=== PATIENT | male | born 1940 | race Caucasian/White ===

== ENCOUNTER 2017-03-28 14:04 | Outpatient (CLI) | payer MEDICARE, OTHER ==
[2017-03-28 14:20] VITALS: BP 117/60
[2017-03-28] MEDS ORDERED: ASPIRIN-LOW81 MG ORAL (14:57)
[2017-03-28] MEDS ORDERED: AMLODIPINE BESY10 MG ORAL (14:57)
[2017-03-28] MEDS ORDERED: LEVEMIR FL100 UNIT/1 SUBQ (14:57)
[2017-03-28] MEDS ORDERED: GABAPENTIN100 MG ORAL (14:58)
[2017-03-28] MEDS ORDERED: BENAZEPRIL HCL40 MG ORAL (14:58)
[2017-03-28] MEDS ORDERED: TAMSULOSIN HCL0.4 MG ORAL (14:58)
[2017-03-28] MEDS ORDERED: DIOVAN320 MG ORAL (14:58)
[2017-03-28] MEDS ORDERED: LEXAPRO5 MG ORAL (14:58)
[2017-03-28] MEDS ORDERED: CARVEDILOL25 MG ORAL (14:58)
[2017-03-28] MEDS ORDERED: LIPITOR80 MG ORAL (14:58)
[2017-03-28] MEDS ORDERED: PLAVIX75 MG ORAL (14:58)
--- NOTE | 2017-03-28 15:07 | GI Initial Consult Note ---
Padilla,Renetta David N.P. 03/28/17 1506: History of Present Illness General Date patient seen: Mar 28, 2017 Time patient seen: 14:49 Referring physician: LEXIE Reason for Consultation: RECTAL BLEED Present Illness HPI 76 year old male patient with history of prostate cancer s/p chemotherapy presents to the clinic with complaint of rectal bleed, noted as bright red, x2 q2-3 weeks. Patient states he has never had a colonoscopy performed before. Denies any unintentional weight loss or changes in dietary habits. States he has been gaining weight. No signs of abuse or neglect. Patient is not fall risk. Home Meds Reported Medications Valsartan (DIOVAN) 320 Mg Tablet, 320 MG ORAL DAILY, TAB 03/28/17 Tamsulosin Hcl (TAMSULOSIN HCL*) 0.4 Mg Cap.er.24h, 0.4 MG ORAL BEDTIME, CAP 03/28/17 Gabapentin* (GABAPENTIN*) 100 Mg Capsule, 100 MG ORAL THREE TIMES A DAY, CAP 03/28/17 Escitalopram Oxalate (LEXAPRO) 5 Mg Tablet, 20 MG ORAL DAILY, TAB 03/28/17 Clopidogrel Bisulfate* (PLAVIX*) 75 Mg Tablet, 75 MG ORAL DAILY, TAB 03/28/17 Carvedilol* (CARVEDILOL*) 25 Mg Tablet, 25 MG ORAL EVERY 12 HOURS, TAB 03/28/17 Benazepril Hcl* (BENAZEPRIL HCL*) 40 Mg Tablet, ORAL DAILY, TAB 03/28/17 Atorvastatin (Lipitor) 80 Mg Tablet, 40 MG ORAL BEDTIME, #30 TAB 0 Refills 03/28/17 Aspirin (Aspirin EC) 81 Mg Tablet.dr, 81 MG ORAL DAILY, TAB 03/28/17 Amlodipine Besylate* (AMLODIPINE BESYLATE*) 10 Mg Tablet, 10 MG ORAL DAILY, TAB 03/28/17 Insulin Detemir (LEVEMIR FLEXPEN) 100 Unit/1 Ml Insuln.pen, 0 SUBQ, #300 UNITS 0 Refills 03/28/17 Med list reviewed/reconciled: Yes Allergies: Coded Allergies: No Known Allergies (Unverified , 03/28/17) Patient History History Provided By: Patient, Medical Record PMH Narrative Prostate CA s/p chemo, currently in remission or eradicated DM stroke inguinal hernia Past Surgical History: Chemo stent - stomach and brain Family History Narrative unable to recall Social History: Denies: smoking, alcohol use, drug use, other Social History Narrative daily coffee Review of Systems All Other Systems: negative except mentioned in HPI Physical Exam T 98.5 BP 117/60 P 52 96 RA WT 210.5 lbs Sp02 EP Interpretation: reviewed, normal General Appearance: well appearing, no apparent distress, alert, other - overweight Head: normocephalic EENT: PERRL/EOMI, normal ENT inspection Neck: supple Respiratory: normal breath sounds, no respiratory distress Cardiovascular: normal rate Gastrointestinal: normal inspection, non tender, soft, normal bowel sounds, non -distended Rectal: deferred Genitourinary: deferred Musculoskeletal: normal inspection, back normal Neurologic: normal inspection, alert, oriented x3, responsive Psychiatric: normal inspection, judgement/insight normal, memory normal Skin: normal inspection, normal color, no rash, warm/dry, palpation normal, well hydrated Lymphatic: normal inspection, no adenopathy GI: Plan Problems: (1) Diabetes mellitus (2) History of stroke (3) Rectal bleed (4) Prostate cancer (5) Inguinal hernia Plan Colonoscopy scheduled for 04/04/17. - CLD & (Nulytely/Suprep/Movi-Prep) prep instructions given and acknowledged by patient. - NPO @ [place] day prior procedure explained. Patient is on plavix, must be dc'd min 48-72 hours prior procedure. Seen with Dr. Servin. Thank you for this patient referral. FLORI SERVIN 03/30/17 1012: History of Present Illness Present Illness Home Meds Reported Medications Valsartan (DIOVAN) 320 Mg Tablet, 320 MG ORAL DAILY, TAB 03/28/17 Tamsulosin Hcl (TAMSULOSIN HCL*) 0.4 Mg Cap.er.24h, 0.4 MG ORAL BEDTIME, CAP 03/28/17 Gabapentin* (GABAPENTIN*) 100 Mg Capsule, 100 MG ORAL THREE TIMES A DAY, CAP 03/28/17 Escitalopram Oxalate (LEXAPRO) 5 Mg Tablet, 20 MG ORAL DAILY, TAB 03/28/17 Clopidogrel Bisulfate* (PLAVIX*) 75 Mg Tablet, 75 MG ORAL DAILY, TAB 03/28/17 Carvedilol* (CARVEDILOL*) 25 Mg Tablet, 25 MG ORAL EVERY 12 HOURS, TAB 03/28/17 Benazepril Hcl* (BENAZEPRIL HCL*) 40 Mg Tablet, ORAL DAILY, TAB 03/28/17 Atorvastatin (Lipitor) 80 Mg Tablet, 40 MG ORAL BEDTIME, #30 TAB 0 Refills 03/28/17 Aspirin (Aspirin EC) 81 Mg Tablet.dr, 81 MG ORAL DAILY, TAB 03/28/17 Amlodipine Besylate* (AMLODIPINE BESYLATE*) 10 Mg Tablet, 10 MG ORAL DAILY, TAB 03/28/17 Insulin Detemir (LEVEMIR FLEXPEN) 100 Unit/1 Ml Insuln.pen, 0 SUBQ, #300 UNITS 0 Refills 03/28/17 Allergies: Coded Allergies: No Known Allergies (Unverified , 03/28/17) GI: Plan Plan The patient was seen and examined at bedside and all new and available data was reviewed in the patients chart. I agree with the above findings, impression and plan. (Patient seen earlier today. Signature stamp does not reflect patient encounter time.). - [facility] David N.PMellissa Mar 28, 2017 15:06 FLORI SERVIN Mar 30, 2017 10:12
== END 2017-03-28 14:35 | disposition home or self-care (01) ==
LOC: PAN 14:04
DX: K62.5 Hemorrhage of anus and rectum (principal); E11.9 Type 2 diabetes mellitus without complications; Z86.73 Personal history of transient ischemic attack (TIA), and cerebral infarction without residual deficits; C61 Malignant neoplasm of prostate; K40.90 Unilateral inguinal hernia, without obstruction or gangrene, not specified as recurrent; Z79.82 Long term (current) use of aspirin; E66.3 Overweight
CPT/HCPCS: 99201

== ENCOUNTER 2017-04-04 10:01 | Day surgery (SDC) | payer MEDICARE, MEDICAID ==
[2017-04-04] VITALS (7 sets, daily range): BP systolic 142–170; BP diastolic 69–88
[~2017-04-04] VITALS: Ht 170.2 cm; Wt 88.5 kg
--- NOTE | 2017-04-04 07:54 | Anethesia Preoperative Eval ---
Anesthesia Pre-op PMH/ROS General Date of Evaluation: Apr 04, 2017 Time of Evaluation: 07:52 Anesthesiologist: marta ASA Score: ASA 3 Mallampati Score Class I : Soft palate, uvula, fauces, pillars visible Class II: Soft palate, uvula, fauces visible Class III: Soft palate, base of uvula visible Class IV: Only hard plate visible Mallampati Classification: Class II Surgeon: tim Diagnosis: rectal bleed Surgical Procedure: colonoscopy Anesthesia History: none Family History: no anesthesia problems Allergies: Coded Allergies: No Known Allergies (Unverified , 04/04/17) Medications: see eMAR Past Medical History Cardiovascular: Reports: HTN Gastrointestinal/Genitourinary: Reports: other - prostate cancer Neurologic/Psychiatric: Reports: CVA, depression/anxiety Endocrine: Reports: DM Anesthesia Pre-op Phys. Exam Physician Exam Last Vital Signs Date Time Temp Pulse Resp B/P (MAP) Pulse Ox O2 Delivery O2 Flow Rate FiO2 04/04/17 10:27 97.8 76 17 153/72 96 Room Air Constitutional: NAD Neurologic: CN 2-12 intact Cardiovascular: RRR Respiratory: CTA Gastrointestinal: S/NT/ND Airway Exam Mallampati Score: Class II MO: full Neck: supple TMD: 2fb ROM: limited Anesthesia Pre-op A/P Labs Accucheck 230 Risk Assessment & Plan Assessment: asa3 Plan: mac Status Change Before Surgery: No Pre-Antibiotics Drug: JAZMYN Tomlinson Apr 04, 2017 07:54
[~2017-04-04 10:01] MED LIST: AMLODIPINE BESY10 MG ORAL; ASPIRIN-LOW81 MG ORAL; BENAZEPRIL HCL40 MG ORAL; CARVEDILOL25 MG ORAL; DIOVAN320 MG ORAL; GABAPENTIN100 MG ORAL; LEVEMIR FL100 UNIT/1 SUBQ; LEXAPRO5 MG ORAL; LIPITOR80 MG ORAL; PLAVIX75 MG ORAL; TAMSULOSIN HCL0.4 MG ORAL
--- NOTE | 2017-04-04 10:41 | Short Stay Surgery H&P ---
History of Present Illness History of Present Illness Chief Complaint see recent consult note HPI Thiago Aleman is a 76 year old male who was admitted on for Rectal Bleed Patient History Allergies: Coded Allergies: No Known Allergies (Unverified , 04/04/17) PAST MEDICAL HISTORY: Past Surgeries: Social History: Medication History Scheduled Amlodipine Besylate* (Amlodipine Besylate*), 10 MG ORAL DAILY, (Reported) Aspirin (Aspirin EC), 81 MG ORAL DAILY, (Reported) Atorvastatin (Lipitor), 40 MG ORAL BEDTIME, (Reported) Benazepril Hcl* (Benazepril Hcl*), ORAL DAILY, (Reported) Carvedilol* (Carvedilol*), 25 MG ORAL EVERY 12 HOURS, (Reported) Clopidogrel Bisulfate* (Plavix*), 75 MG ORAL DAILY, (Reported) Escitalopram Oxalate (Lexapro), 20 MG ORAL DAILY, (Reported) Gabapentin* (Gabapentin*), 100 MG ORAL THREE TIMES A DAY, (Reported) Tamsulosin Hcl (Tamsulosin Hcl*), 0.4 MG ORAL BEDTIME, (Reported) Valsartan (Diovan), 320 MG ORAL DAILY, (Reported) Miscellaneous Medications Insulin Detemir (Levemir Flexpen), 0 SUBQ, (Reported) Review of Systems Cardiovascular: Reports: no symptoms Respiratory: Reports: no symptoms Skeletal: Reports: no symptoms Gastrointestinal: Reports: no symptoms Neurologic: Reports: no symptoms Endocrine: Reports: no symptoms Hematologic: Reports: no symptoms Physical Exam Vital Signs Last Vital Signs Date Time Temp Pulse Resp B/P (MAP) Pulse Ox O2 Delivery O2 Flow Rate FiO2 04/04/17 10:27 97.8 76 17 153/72 96 Room Air Skin: normal HENT: normal Heart: normal Lungs: normal Abdomen: normal Extremities: normal Plan Plan of Care esophagogastroduodenoscopy and colonoscopy Final Diagnosis: Attestation Are the patient's medical conditions optimized for surgery? Attestation Response: yes FLORI SERVIN Apr 04, 2017 10:41
--- NOTE | 2017-04-04 10:42 | Pre-Procedure Note/Attestation ---
Pre-Procedure Note/Attestation Complete Prior to Procedure Planned Procedure: not applicable Procedure Narrative: esophagogastroduodenoscopy and colonoscopy Indications for Procedure Pre-Operative Diagnosis: GIB Attestation I attest that I discussed the nature of the procedure; its benefits; risks and complications; and alternatives (and the risks and benefits of such alternatives ), prior to the procedure, with the patient (or the patient's legal distribution sales representative). I attest that, if there was a reasonable possibility of needing a blood transfusion, the patient (or the patient's legal distribution sales representative) was given the [facility] standardized written summary, pursuant to the Vinny Steffi Blood Safety Act ([place] Health and Safety Code # 1645, as amended). I attest that I re-evaluated the patient just prior to the surgery and that there has been no change in the patient's H&P, except as documented below: FLORI SERVIN Apr 04, 2017 10:42
[2017-04-04] MEDS ORDERED: Propofol 200mg/20ml IV ONE (11:00)
[2017-04-04] MEDS ORDERED: Lidocaine 1% MPF 10mg/ml 5ml ONE (11:00)
--- NOTE | 2017-04-04 11:27 | Endoscopy Procedure Note ---
Endoscopy Procedure Note Indication for Procedure: rectal bleed Operative Findings/Diagnosis: 3 polyps Specimen: yes Pt Tolerated Procedure Well: Yes Anesthesiologist: jermaine Anesthesia: MAC Implant(s) used?: No 50 yrs or older w/o bx or poly: No 10yrs. F/U not recommended: Yes If not recommended, why?: Above average risk 10 yrs. F/U needed: Yes 18 years or older w/prev. colo: No FLORI SERVIN Apr 04, 2017 11:27
--- NOTE | 2017-04-04 12:18 | Immediate Post-Op Evaluation ---
Immediate Post-Op Evalulation Immediate Post-Op Evalulation Procedure: colonoscopy Date of Evaluation: Apr 04, 2017 Time of Evaluation: 11:49 IV Fluids: 250ml 0.9ns Blood Products: none Estimated Blood Loss: negligible Blood Pressure Systolic: 148 Blood Pressure Diastolic: 81 Pulse Rate: 65 Respiratory Rate: 18 O2 Sat by Pulse Oximetry: 99 Temperature (Fahrenheit): 98.7 Pain Score (1-10): 0 Nausea: No Vomiting: No Complications none Patient Status: awake, reacts, patent Hydration Status: adequate Drug: JAZMYN Tomlinson Apr 04, 2017 12:18
--- NOTE | 2017-04-04 12:19 | 48 Hour Post Anesthesia Eval ---
Post Anesthesia Evaluation Procedure: colonoscopy Date of Evaluation: Apr 04, 2017 Time of Evaluation: 11:55 Blood Pressure Systolic: 148 0: 88 Pulse Rate: 65 Respiratory Rate: 18 Temperature (Fahrenheit): 98.7 O2 Sat by Pulse Oximetry: 99 Airway: patent Nausea: No Vomiting: No Pain Intensity: 0 Hydration Status: adequate Cardiopulmonary Status: stable Mental Status/LOC: patient returned to baseline Post-Anesthesia Complications: none Follow-up care needed: N/A JAZMYN GIBBS Apr 04, 2017 12:19
[2017-04-04] MEDS ORDERED: fentaNYL 100 mcg/2 mL IV PRN (12:30)
[2017-04-04] MEDS ORDERED: DiphenhydrAMINE 50mg/ml Inj IVP PRN (12:30)
[2017-04-04] MEDS ORDERED: Atropine Inj 1mg/10ml Syr IV PRN (12:30)
[2017-04-04] MEDS ORDERED: Midazolam 2mg/2ml Inj IVP PRN (12:30)
--- NOTE | 2017-04-04 15:15 | Procedure Note ---
DATE OF PROCEDURE: 04/04/2017 SURGEON: Magdaleno Bonilla M.D. PROCEDURE: Colonoscopy with hemostasis biopsy polypectomy. ANESTHESIA: Per Dr. Thorne. INSTRUMENT: Olympus adult flexible colonoscope. INDICATION: Rectal bleeding, history of the radiation Protonix. REASON FOR PROCEDURE: The procedure, risks, benefits, and possible consequences, including hemorrhage, aspiration, perforation and infection, and alternative treatments, were explained to the patient/legal guardian by Dr. Magdaleno Bonilla and the patient/legal guardian understood and accepted these risks. PROCEDURE: After informed consent was obtained and the patient was adequately sedated, first rectal exam was performed, which was normal. Then, the scope was advanced from the rectum into the cecum documented by appendiceal orifice, ileocecal valve, and right upper quadrant palpation. Quality of prep was very good. The patient had one polyp in ascending colon, removed with the cold snare polypectomy technique. This polyp measured roughly about 5 mm. Another polyp in the transverse colon, which was removed with cold biopsy forceps technique. This was diminutive polyp. Next polyp was in the sigmoid, removed with the cold biopsy forceps technique. This polyp measured 4 mm. The patient had some significant diverticulosis in the left colon and some scattered diverticula in the right colon. The patient has evidence of radiation proctitis. We used APC to cauterize this area of the arteriovenous malformations in the rectum. Retroflexion of rectum showed evidence of internal hemorrhoids, medium, nonbleeding. SUMMARY FINDINGS: 1. Three colonic polyp removed, see above for details. 2. Diverticulosis. 3. Hemorrhoids. 4. 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 RECOMMENDATIONS: Follow biopsy and treat accordingly. I want to thank, Dr. Burch, for this kind referral. Magdaleno Bonilla M.D. DR: DEEDEE JOB#: [id number] CC: Jevon Burch M.D.; Fax#: [phone]
== END 2017-04-04 15:20 | disposition home or self-care (01) ==
LOC: GAS 10:01
DX: K63.5 Polyp of colon (principal); K57.30 Diverticulosis of large intestine without perforation or abscess without bleeding; K64.9 Unspecified hemorrhoids; K62.7 Radiation proctitis; Z79.82 Long term (current) use of aspirin; I10 Essential (primary) hypertension; Z85.46 Personal history of malignant neoplasm of prostate; F41.9 Anxiety disorder, unspecified; F32.9 Major depressive disorder, single episode, unspecified; E11.9 Type 2 diabetes mellitus without complications; Z86.73 Personal history of transient ischemic attack (TIA), and cerebral infarction without residual deficits
CPT/HCPCS: 45380; 45382; 82962; 93005; J2704; 94003; 94150

== ENCOUNTER 2018-07-03 06:56 | Day surgery (SDC) | payer MEDICARE, MEDICAID ==
[~2018-07-03] VITALS: Ht 167.6 cm; Wt 72.6 kg
[2018-07-03] VITALS (8 sets, daily range): BP systolic 90–144; BP diastolic 60–92
--- NOTE | 2018-07-03 08:19 | Anethesia Preoperative Eval ---
Anesthesia Pre-op PMH/ROS General Date of Evaluation: Jul 03, 2018 Time of Evaluation: 08:17 Anesthesiologist: Jen ASA Score: ASA 3 Mallampati Score Class I : Soft palate, uvula, fauces, pillars visible Class II: Soft palate, uvula, fauces visible Class III: Soft palate, base of uvula visible Class IV: Only hard plate visible Mallampati Classification: Class II Surgeon: Avery Diagnosis: Anemia abdominal pain Surgical Procedure: cOLONOSCOPY Anesthesia History: none Family History: no anesthesia problems Allergies: Coded Allergies: No Known Allergies (Unverified , 07/03/18) Medications: see eMAR Patient NPO?: Yes Past Medical History Cardiovascular: Reports: HTN; Denies: CAD, AR, valve dz, arrhythmia, other Pulmonary: Denies: asthma, COPD, AVELINA, other Gastrointestinal/Genitourinary: Reports: GERD; Denies: CRI, ESRD, other Neurologic/Psychiatric: Reports: depression/anxiety; Denies: dementia, CVA, TIA, other Endocrine: Reports: DM; Denies: hypothyroidism, steroids, other HEENT: Denies: cataract (L), cataract (R), glaucoma, JAMUL (L), JAMUL (R), other Hematology/Immune: Reports: anemia; Denies: DVT, bleeding disorder, other Musculoskeletal/Integumentary: Reports: DJD PMH Narrative: as above PSxH Narrative: See H&P Anesthesia Pre-op Phys. Exam Physician Exam Last Vital Signs Date Time Temp Pulse Resp B/P (MAP) Pulse Ox O2 Delivery O2 Flow Rate FiO2 07/03/18 08:05 Room Air 07/03/18 07:45 98.8 72 18 144/92 98 Constitutional: NAD Neurologic: CN 2-12 intact Cardiovascular: RRR, no M/R/G Respiratory: CTA Gastrointestinal: S/NT/ND Airway Exam Mallampati Score: Class II MO: limited Neck: stiff ROM: full Teeth: intact Dentures: no upper, no lower Anesthesia Pre-op A/P Risk Assessment & Plan Assessment: ASA 3 Plan: MAC Status Change Before Surgery: No Soy Li MD Jul 03, 2018 08:19
[2018-07-03] MEDS ORDERED: fentaNYL 100 mcg/2 mL IV ONE (08:30)
[2018-07-03] MEDS ORDERED: Propofol 200mg/20ml IV ONE (08:30)
[2018-07-03] MEDS ORDERED: LR 1000ml ONE (08:30)
[2018-07-03] MEDS ORDERED: Midazolam 2mg/2ml Inj ONE (08:30)
--- NOTE | 2018-07-03 08:37 | Pre-Procedure Note/Attestation ---
Pre-Procedure Note/Attestation Complete Prior to Procedure Planned Procedure: not applicable Procedure Narrative: colonoscopy Indications for Procedure Pre-Operative Diagnosis: anemia Attestation I attest that I discussed the nature of the procedure; its benefits; risks and complications; and alternatives (and the risks and benefits of such alternatives ), prior to the procedure, with the patient (or the patient's legal scheduling representative). I attest that, if there was a reasonable possibility of needing a blood transfusion, the patient (or the patient's legal scheduling representative) was given the [facility] standardized written summary, pursuant to the Vinny Steffi Blood Safety Act ([place] Health and Safety Code # 1645, as amended). I attest that I re-evaluated the patient just prior to the surgery and that there has been no change in the patient's H&P, except as documented below: Macrina Soliman MD Jul 03, 2018 08:36
--- NOTE | 2018-07-03 08:39 | Short Stay Surgery H&P ---
History of Present Illness History of Present Illness Chief Complaint CC anmia HPI Detailed H&P attached. Patient with anemia and weight loss PMH: ischemic CM GERD FH NC SH at SNF -->, non smoker ROS Neg PE NCAT supple CTA RRR Abd soft ND No edema Assessment Anemai Weight loss Rec Colonoscopy HPI Thiago Aleman is a 77 year old male who was admitted on for Anemia Patient History Allergies: Coded Allergies: No Known Allergies (Unverified , 07/03/18) Medication History Scheduled Amlodipine Besylate* (Amlodipine Besylate*), 10 MG ORAL DAILY, (Reported) Aspirin (Aspirin EC), 81 MG ORAL DAILY, (Reported) Atorvastatin (Lipitor), 40 MG ORAL BEDTIME, (Reported) Benazepril Hcl* (Benazepril Hcl*), ORAL DAILY, (Reported) Carvedilol* (Carvedilol*), 25 MG ORAL EVERY 12 HOURS, (Reported) Clopidogrel Bisulfate* (Plavix*), 75 MG ORAL DAILY, (Reported) Escitalopram Oxalate (Lexapro), 20 MG ORAL DAILY, (Reported) Gabapentin* (Gabapentin*), 100 MG ORAL THREE TIMES A DAY, (Reported) Tamsulosin Hcl (Tamsulosin Hcl*), 0.4 MG ORAL BEDTIME, (Reported) Valsartan (Diovan), 320 MG ORAL DAILY, (Reported) Miscellaneous Medications Insulin Detemir (Levemir Flexpen), 0 SUBQ, (Reported) Physical Exam Vital Signs Last Vital Signs Date Time Temp Pulse Resp B/P (MAP) Pulse Ox O2 Delivery O2 Flow Rate FiO2 07/03/18 08:05 Room Air 07/03/18 07:45 98.8 72 18 144/92 98 Plan Attestation Are the patient's medical conditions optimized for surgery? Macrina Soliman MD Jul 03, 2018 08:39
--- NOTE | 2018-07-03 09:22 | Immediate Post-Op Evaluation ---
Immediate Post-Op Evalulation Immediate Post-Op Evalulation Procedure: Colonoscopy Date of Evaluation: Jul 03, 2018 Time of Evaluation: 09:21 IV Fluids: 300 Blood Products: none Estimated Blood Loss: none Urinary Output: none Blood Pressure Systolic: 116 Blood Pressure Diastolic: 72 Pulse Rate: 64 Respiratory Rate: 20 O2 Sat by Pulse Oximetry: 98 Temperature (Fahrenheit): 97.6 Pain Score (1-10): 1 Nausea: No Vomiting: No Complications none Patient Status: reacts, patent, none Hydration Status: adequate Soy Li MD Jul 03, 2018 09:22
--- NOTE | 2018-07-03 10:03 | 48 Hour Post Anesthesia Eval ---
Post Anesthesia Evaluation Procedure: Colonoscopy Date of Evaluation: Jul 03, 2018 Time of Evaluation: 10:02 Blood Pressure Systolic: 128 0: 65 Pulse Rate: 68 Respiratory Rate: 20 Temperature (Fahrenheit): 97.6 O2 Sat by Pulse Oximetry: 98 Airway: patent Nausea: No Vomiting: No Pain Intensity: 1 Hydration Status: adequate Cardiopulmonary Status: stable Mental Status/LOC: patient returned to baseline Follow-up Care/Observations: n/a Post-Anesthesia Complications: none Follow-up care needed: ready to discharge Soy Li MD Jul 03, 2018 10:03
[2018-07-03] MEDS ORDERED: VITAMIN C500 M1 ORAL (10:11)
[2018-07-03] MEDS ORDERED: FAMOTIDINE20 MG ORAL (10:11)
[2018-07-03] MEDS ORDERED: LISINOPRIL20 MG ORAL (10:11)
[2018-07-03] MEDS ORDERED: NOVOLOG100 UNITS1 SQ (10:11)
--- NOTE | 2018-07-03 20:25 | Endoscopy Procedure Note ---
Endoscopy Procedure Note General Indication for Procedure: anemia Procedures Performed: colonoscopy Operative Findings/Diagnosis: tics, rhoids Specimen: none Pt Tolerated Procedure Well: Yes Estimated Blood Loss: minimal Anesthesia Anesthesiologist: see record Anesthesia: MAC Medications Medication Given: see anesthesia record Inserted Devices Implant(s) used?: No Quality Quality of Bowel Preparation: Fair Did scope reach the cecum?: Yes GI Core Measures 50 yrs or older w/o bx or poly: Not Applicable 10yrs. F/U not recommended: Not Applicable If not recommended, why?: Macrina Soliman MD Jul 03, 2018 20:25
--- NOTE | 2018-07-03 20:26 | Brief Operative Note ---
Immediate Post Operative Note Operative Note Chief Complaint: anemia Pre-op Diagnosis: anemia Procedure: colon Post-op Diagnosis: jag mccartney Surgeon: michael Anesthesiologist: see notes Anesthesia: MAC Specimen: none Complications: none Condition: stable Fluids: recorded Estimated Blood Loss: minimal Implant(s) used?: No Macrina Soliman MD Jul 03, 2018 20:26
--- NOTE | 2018-07-04 05:15 | Operative Note - Dictated ---
DATE OF OPERATION: 07/03/2018 GASTROENTEROLOGY PROCEDURE REPORT PROCEDURE: Colonoscopy. SURGEON: Macrina Soliman M.D. ANESTHESIA: Please see the separate anesthesiology notes for details. PRE-ENDOSCOPIC DIAGNOSIS: Anemia. POST-ENDOSCOPIC DIAGNOSES: 1. Moderate left-sided diverticulosis. 2. Moderate internal hemorrhoids. 3. Suboptimal preparation, but no masses or cancer seen. PROCEDURE IN DETAIL: The procedure, its risks, indications, alternatives, and possible complications were explained to the patient and informed consent was obtained. The patient was then sedated and a rectal exam was done showing large amounts of solid hard stool in rectum. The rectum was disimpacted with digital examination done at bedside and once adequate disimpaction was done, the colonoscope was inserted and the rectum was lavaged clear. The colonoscope was introduced into the sigmoid and advanced to the cecum. There were scattered areas of solid stool, which could be washed and cleaned and moved showing the lumen. The examination, however, was felt to be suboptimal for detection of small polyps. The colonoscope was withdrawn and the mucosa and the lumen were examined carefully. The examination did not show any masses or cancers. There was moderate left-sided diverticulosis as well as moderate internal hemorrhoids upon retroflexed view of the rectum. The colonoscope was removed. The patient was sent to recovery in good condition. COMPLICATIONS: None. RECOMMENDATIONS: 1. Resume oral diet. 2. Long-term bowel regimen. 3. Push oral intake. 4. Monitor CBC. Thank you for asking me to participate in the care of this patient. Macrina Soliman M.D. DR: HEATHER JOB#: [id number] CC: Jevon Burch M.D.; Fax#: [phone]
== END 2018-07-03 10:20 | disposition home or self-care (01) ==
LOC: GAS 06:56
DX: D64.9 Anemia, unspecified (principal); K57.30 Diverticulosis of large intestine without perforation or abscess without bleeding; K64.8 Other hemorrhoids; I25.5 Ischemic cardiomyopathy; K21.9 Gastro-esophageal reflux disease without esophagitis; I10 Essential (primary) hypertension; F32.9 Major depressive disorder, single episode, unspecified; F41.9 Anxiety disorder, unspecified; M19.90 Unspecified osteoarthritis, unspecified site; Z79.82 Long term (current) use of aspirin
CPT/HCPCS: 45378; 82962; J2250; J2704; J3010; 94003; 94150